=== PATIENT | female | born 1975 | race Caucasian/White ===

== ENCOUNTER 2018-06-02 16:53 | Emergency (ER) | payer MEDICAID ==
[~2018-06-02] VITALS: Ht 160 cm; Wt 61.7 kg
[2018-06-02 16:56] VITALS: Ht 160 cm; Wt 61.7 kg
[2018-06-02 19:21] VITALS: BP 112/67
== END 2018-06-02 19:21 | disposition home or self-care (01) ==
LOC: ED 16:53
DX: G89.29 Other chronic pain (principal); M54.5 Low back pain; I10 Essential (primary) hypertension
CPT/HCPCS: J1885